=== PATIENT | female | born 1990 | race Caucasian/White ===

== ENCOUNTER 2018-11-28 12:12 | Emergency (ER) | payer OTHER ==
[~2018-11-28] VITALS: Ht 162.6 cm; Wt 87.5 kg
[2018-11-28 12:18] VITALS: Ht 162.6 cm; Wt 87.5 kg
[2018-11-28 13:46] VITALS: BP 97/64
== END 2018-11-28 13:46 | disposition home or self-care (01) ==
LOC: ED 12:12
DX: N39.0 Urinary tract infection, site not specified (principal); F17.210 Nicotine dependence, cigarettes, uncomplicated
CPT/HCPCS: J1885